=== PATIENT | female | born 1965 | race Caucasian/White ===

== ENCOUNTER 2024-05-23 17:13 | Emergency (ER) | payer BC, SELFPAY ==
--- NOTE | ~2024-05-23 | XR_ITS ---
EXAM: XR elbow RT min 3V DATE: 05/23/2024 19:05 HISTORY: fall . COMPARISON: None available. FINDINGS: Normal mineralization. No fracture or dislocation. No lytic or blastic lesion. Joint space s are maintained. No erosion or periosteal change. Soft tissues within normal limits. IMPRESSION: No acute osseous finding in the right elbow. Reviewed, dictated and finalized at location K.
--- NOTE | ~2024-05-23 | XR_ITS ---
EXAM: XR forearm RT 2V DATE: 05/23/2024 17:38 HISTORY: FALL . COMPARISON: None available. FINDINGS: Normal mineralization. No fracture or dislocation. No lytic or blastic lesion. Joint space s are maintained. No erosion or periosteal change. Soft tissues within normal limits. IMPRESSION: No acute osseous finding in the right forearm. Reviewed, dictated and finalized at location K.
--- NOTE | ~2024-05-23 | XR_ITS ---
EXAM: XR humerus RT DATE: 05/23/2024 17:38 HISTORY: FALL . COMPARISON: None available. FINDINGS: Normal mineralization. No fracture or dislocation. No lytic or blastic lesion. Joint space s are maintained. No erosion or periosteal change. Soft tissues within normal limits. IMPRESSION: No acute osseous finding in the right humerus. Reviewed, dictated and finalized at location K.
--- NOTE | ~2024-05-23 | CT_ITS ---
EXAMINATION: CT cervical spine wo con DATE: 05/23/2024 19:18 INDICATION: fall TECHNIQUE: Computed tomography (CT) of the cervical spine was performed without intravenous contrast. Automated exposure control and iterative reconstruction technique were employed. The dose-length pro duct was 303.70 mGy-cm. COMPARISON: None. FINDINGS: Vertebral Body Alignment: Intact. Reversed lordosis, centered at C5-6. Craniocervical and atlantoaxial alignment: Moderate degenerative change. Alignment intact. Osseous structures/fracture: No evidence of a lytic or blastic process in the visualized spine. No e vidence of acute fracture. Cervical soft tissues: The paraspinal soft tissues planes are maintained. Biapical pleural scarring. Degenerative changes: Multilevel mild facet arthropathy. Multilevel cervical degenerative disc diseas e, moderate at C5-6. Moderate central canal narrowing at that level secondary to a prominent posterio r disc osteophyte complex. No severe neural foraminal narrowing. IMPRESSION: No acute fracture or traumatic malalignment in the cervical spine. Reviewed, dictated and finalized at location K.
[2024-05-23 17:16] VITALS: BP 160/80; PULSE 63; RESP 16; TEMP 36.4; O2SAT 98
--- NOTE | 2024-05-23 17:46 | ED.UPPEXIN ---
HPI - Extremity Injury (Upper) General Chief Complaint: Extremity Injury, Upper Stated Complaint: Fall-injury to right arm Time Seen by Provider: 05/23/24 17:46 Source: patient Mode of arrival: ambulatory Limitations: no limitations History of Present Illness HPI narrative: 68 years old white male came to the ED by private car complaining of a fall,. Patient went down 2 steps of the DAC, now complaining of pain at the right upper extremity. He denies other injuries. Related Data Allergies Allergy/AdvReac Type Severity Reaction Status Date / Time ciprofloxacin (From Cipro) Allergy Severe Redness of Verified 05/23/24 17:22 Skin amoxicillin Allergy Intermediate Hives Verified 05/23/24 17:22 Course Vital Signs Vital signs: Vital Signs Temperature 36.4 C L 05/23/24 17:16 Pulse Rate 63 05/23/24 17:16 Respiratory Rate 16 05/23/24 17:16 Blood Pressure 160/80 H 05/23/24 17:16 Pulse Oximetry 98 05/23/24 17:16 Temperature 36.4 C L 05/23/24 17:16 Pulse Rate 63 05/23/24 17:16 Respiratory Rate 16 05/23/24 17:16 Blood Pressure 160/80 H 05/23/24 17:16 Pulse Oximetry 98 05/23/24 17:16 MDM - Extremity Injury (Upper) Imaging Data My impression: Impressions Humerus X-Ray 05/23/24 18:21 IMPRESSION: No acute osseous finding in the right humerus. Forearm X-Ray 05/23/24 18:22 IMPRESSION: No acute osseous finding in the right forearm. Elbow X-Ray 05/23/24 19:19 IMPRESSION: No acute osseous finding in the right elbow. Radiologist's impression: Impressions Humerus X-Ray 05/23/24 18:21 IMPRESSION: No acute osseous finding in the right humerus. Forearm X-Ray 05/23/24 18:22 IMPRESSION: No acute osseous finding in the right forearm. Discharge Plan Discharge Clinical Impression: Sprain and strain of wrist Patient Disposition: Home Condition: Stable Instructions: How to Use a Sling (ED), Splint Care (ED), Wrist Sprain (ED) Additional Instructions: Discharge instructions Ice pack 20 minutes/hour for the next 24 hours Keep right hand elevated, Get [id number] wrist splint Take Tylenol, ibuprofen as needed Patient Language: Slovak Follow-up/Referrals: Agustin Marion MD [Primary Care Provider] -
--- OUTSIDE RECORDS SUMMARY | 2024-05-23 18:36 | XMS_ITS | Clinical Summary ---
Author Organization [facility] Address [address] [place] [address] Phone Care Team Providers Care Channel Opener Name Role Phone Unavailable Primary Care Provider Unavailabl e Allergies Active Allergy Reactions Criticality Noted Date Comments Amoxicillin-Pot Clavulanate Hives 03/03/19 19 Ciprofloxacin Rash 02/12/2018 Milk (Cow) Shortness of Breath 05/05/2018 Medications pantoprazole (PROTONIX) 40 MG Tablet Delayed ResponseIndications :Gastroesophageal reflux disease Take 1 Tab by mouth daily. 90 Tab 1 0 Active propranolol (INDERAL) 20 MG TabletIndications:H ypertension, unspecified type Take 1 Tab by mouth 2 times daily. 180 Tab 1 0 Active albuterol 108 (90 Base) MCG/ACT Aerosol SolutionIndications :Mild intermittent asthma without complication INHALE 2 PUFFS BY MOUTH EVERY 4 HOURS NEEDED FOR WHEEZE 8.5 Inhaler 1 0 Active traZODone (DESYREL) 100 MG TabletIndications:I nsomnia, unspecified type TAKE 1 TABLET BY MOUTH EVERY DAY AT NIGHT 90 Tablet 1 1 Active simvastatin (ZOCOR) 5 MG TabletIndications:H yperlipidemia, unspecified hyperlipidemia type TAKE 1 TABLET BY MOUTH EVERY DAY 90 Tablet 1 1 Active Active Problems Problem Noted Date Diagnosed Date Hyperlipidemia 12/08/2018 IFG (impaired fasting glucose) 12/08/2018 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/2018 Vitamin D insufficiency 07/09/2018 Depression 06/08/2018 Mild intermittent asthma without complication Hypertension 05/05/2018 RLS (restless legs syndrome) 05/05/2018 Insomnia 05/05/2018 Gastroesophageal reflux disease 05/05/2018 Seasonal allergic rhinitis 05/05/2018 Resolved Problems Problem Noted Date Diagnosed Date Resolved Date ETD (Eustachian tube dysfunction), bilateral 9 12/08/2018 Tympanosclerosis involving t ympanic membrane only, bilateral 07/09/2018 12/08/2018 Aural polyp, left 07/09/2018 12/08/2018 PNAR (perennial non-allergic rhinitis) 07/09/2018 12/08/2018 Hypertrophy of inferior nasal turbinate 07/09/2018 12/08/2018 Nasal obstruction without choanal atresia 07/09/2018 12/08/2018 Persistent hypersomnia 07/09/201812/08 Snoring 07/09/2018 12/08/2018 Chronic otitis media of left ear 07/09/2018 12/08/2018 PLMD (periodic limb movement disorder) 07/09/2018 12/08/2018 Laryngopharyngeal reflux (LPR) 07/09/2018 12/08/2018 Immunizations Immunization Administration Dates Next Due Covid-19, Mrna, Lnp-s, Pf, 30 Mcg/0.3 Ml Dose (P fizer) 05/30/2020,05/07/2020 Influenza Vaccine greater than 3 yrs 11/26/2019 Influenza Vaccine, Quadrivalent, PF 12/01/2018 Influenza, Recombinant, Quadrivalent,injectable, Pf 11/26/2019 Pneumococcal Vaccine Adult - 23 Valent 0 TDAP Vaccine 12/08/2018 Family History Relation Name Status Comments Father Alive Mother Alive Social History Tobacco Use Types Packs/Day Years Used Date Smoking Tobacco: Never Smokeless Tobacco: Never Alcohol Use Standard Drinks/Week Comments Yes 0 (1 standard drink = 0.6 oz pur e alcohol) PHQ-2 Answer Date Recorded Total Score - Questions 1-9 0 12/11 Comments No Sex and Gender Information Value Date Recorded Sex Assigned at Not on file Legal Sex Female 2:54 PM ELECTRIC METER TESTER SHOP Gender Identity Not on file Sexual Orientation Not on file Last Filed Vital Signs Vital Sign Reading Time Taken Comments Blood Pressure 132/78 12/27/2019 12:57 PM ELECTRIC METER TESTER SHOP Pulse 56 12/27/2019 12:57 PM ELECTRIC METER TESTER SHOP Temperature 36.8 C (98.2 F) 12/27/2019 12:57 PM ELECTRIC METER TESTER SHOP Respiratory Rate 16 12/27/2019 12:57 PM ELECTRIC METER TESTER SHOP Oxygen Saturation 98% 12/27/2019 12:57 PM ELECTRIC METER TESTER SHOP Inhaled Oxygen Concentration - - Weight 80.1 kg (176 lb 9.6 oz) 12/27/2019 12:57 PM ELECTRIC METER TESTER SHOP Height 162.6 cm (5' 4 ) 12/27/2019 12:57 PM ELECTRIC METER TESTER SHOP Body Mass Index 30.31 12/27/2019 12:57 PM ELECTRIC METER TESTER SHOP Plan of Treatment Health Maintenance Due Date Last Done Comments Hepatitis C Virus (HCV) Screening 1965 Hepatitis B Immunization (1 of 3 - 19+ 3-dose series) 08/12/1983 HPV/Cotest 1994 Cologuard 2014 Immunochemical Fecal Occult Blood 2014 Zoster Immunization (1 of 2) 2014 Mammogram 06/10/2020 06/10/2018, 03/01/2016 Pneumococcal Immunization (5 0+ years) (2 of 2 - PCV) 12/26/2020 12/27/2019 Cervical Cancer Screening (CCS) 07/16/2021 Pap Smear 07/16/2021 07/16/2018, 06/10/2018 Influenza Immunization (#1) 10/12/202311/10, 11/26/2019, 12/01/2018 SARS-COV-2 Immunization ( season) 2023 05/30/2020, 05/07/2020 Colonoscopy 08/17/2025 08/18/2015 Colorectal Cancer Screening 08/17/2025 Td Immunization Every 10 Yea rs (Adults With 1 Tdap) 12/08/2028 12/08/2018 Respiratory Syncytial Virus (RSV) Immunization (Adult) (1 - 1-dose 75+ series) 08/12/2039 08/18/2015 DTaP/Tdap/Td Immunization Discontinued 12/08/2018 Pneumococcal Immunization Combined Discontinued 12/27/2019 Meningococcal Immunization (ACWY) Aged Out No longer eligible based on patient's age to complete this topic Rotavirus Immunization Aged Out No lo nger eligible based on patient's age to complete this topic Procedures Procedure Name Priority Date/Time Associated Diagnosis Comments PATHOLOGY CYTOLOGY QUALITY CONTROL ASSISTANT Routine 07/16/2018 CE SCREENING BILATERAL DIGITAL W CAD W DELANEY Routine 06/10/2018 4:13 PM CDT Screening for malignant neoplasm of breast HM COLONOSCOPY Routine 08/18/2015 from Last 3 Months or Most Recently Relevant to Health Maintenance Results * PATHOLOGY CYTOLOGY QUALITY CONTROL ASSISTANT (07/16/2018) Specimen of unknown material (specimen) Sidra Meraz Brendon COIL BINDER, DOT NET ARCHITECT PATHOLOGY/CYTOLOGY ORDER LORI Final Result * CE SCREENING BILATERAL DIGITAL W CAD W DELANEY (06/10/2018 4:13 PM CDT) Anatomical Region Laterality Modality breast Bilateral Mammography 06/10/2018 5:50 PM CDT Narrative 06/23/2018 8:25 AM CDT - CE SCREENING BILATERAL DIGITAL W CAD W DELANEY BILATERAL DIGITAL SCREENING MAMMOGRAM 3D/2D WITH CAD WITH MEDIOLATERAL OBLIQUE CRANIOCAUDAL: 06/10/2018 The study was acquired using digital technology and interpreted from soft copy. Current study was also evaluated with ViaWestD version 7.2. CLINICAL: Routine screening. Patient has no complaints. No personal history of cancer. No family history of breast cancer. COMPARISONS: Comparison is made to exams dated: 03/01/2016 and 12/24/2013 [facility]. BREAST TISSUE:The tissue of both breasts is predominantly fatty. FINDINGS: No significant masses, calcifications, or other findings are seen in either breast. There has been no significant interval change. IMPRESSION: BI-RAD 1 NEGATIVE There is no mammographic evidence of malignancy. A 1 year screening mammogram is recommended. The patient has been or will be contacted. The patient will be entered into a reminder system with a target due date of 1 year for her next screening exam. Electronically signed by: Lisbeth hernandez/mildred:06/22/2018 17:06:41 Pyrometer Temperature Regulator: Maryellen Zamora (R), [facility] letter sent: Normal Exam Reading location: [facility] BI-RADS: 1 Negative Procedure Note Lisbeth Weiss MD - 06/23/2018 - CE SCREENING BILATERAL DIGITAL W CAD W DELANEY BILATERAL DIGITAL SCREENING MAMMOGRAM 3D/2D WITH CAD WITH MEDIOLATERAL OBLIQUE CRANIOCAUDAL: 06/10/2018 The study was acquired using digital technology and interpreted from soft copy. Current study was also evaluated with ICAD version 7.2. CLINICAL: Routine screening. Patient has no complaints. No personal history of cancer. No family history of breast cancer. COMPARISONS: Comparison is made to exams dated: 03/01/2016 and 12/24/2013 [facility]. BREAST TISSUE:The tissue of both breasts is predominantly fatty. FINDINGS: No significant masses, calcifications, or other findings are seen in either breast. There has been no significant interval change. IMPRESSION: BI-RAD 1 NEGATIVE There is no mammographic evidence of malignancy. A 1 year screening mammogram is recommended. The patient has been or will be contacted. The patient will be entered into a reminder system with a target due date of 1 year for her next screening exam. Electronically signed by: Lisbeth hernandez/mildred:06/22/2018 17:06:41 Pyrometer Temperature Regulator: Maryellen Zamora (R), [facility] letter sent: Normal Exam Reading location: [facility] BI-RADS: 1 Negative us Piedad Khan MD IMG MAMMO ORDERABLES Final R esult * HM COLONOSCOPY (08/18/2015) us Not On File Provider PROCEDURE/MINOR SURGICAL OR DERABLES Final Result from Last 3 Months or Most Recently Relevant to Health Maintenance Insurance [facility]
--- OUTSIDE RECORDS SUMMARY | 2024-05-23 18:36 | XMS_ITS | Encounter Summary ---
Author Organization [facility] Address [address] [place] [address] Phone Care Team Providers Care Shop Blacksmith Name Role Phone Piedad Khan MD Primary Care Provider Reason for Visit * Reason Comments Medication Refill Encounter Details Date Type Department Care Team (Late st Contact Info) Description 05/22/2020 Refill [facility] - Primary Care - [place] [address] [place] [phone] Piedad Khan MD [address] [place] [address] Medication Refill Social History Tobacco Use Types Packs/Day Years Used Date Smoking Tobacco: Never Smokeless Tobacco: Never Alcohol Use Standard Drinks/Week Comments Yes 0 (1 standard drink = 0.6 oz pur e alcohol) PHQ-2 Answer Date Recorded Total Score - Questions 1-9 0 12/11 Comments No Sex and Gender Information Value Date Recorded Sex Assigned at Not on file Legal Sex Female 2:54 PM SHOP TAILOR APPRENTICE Gender Identity Not on file Sexual Orientation Not on file documented as of this encounter Miscellaneous Notes * Telephone Encounter - Lyubov Lagunas RN - 05/22/2020 10:02 AM CDT Medication failed the protocol, provider to review and approve the medication order if appropriate. Requested Prescriptions Pending Prescriptions Disp Refills traZODone (DESYREL) 100 MG Tablet [Pharmacy Med Name: TRAZODONE 100 MG TABLET] 90 Tablet 1 Sig: TAKE 1 TABLET BY MOUTH EVERY DAY AT NIGHT Not Delegated - Psychiatry: Antidepressants - Serotonin Reuptake Inhibitor/Antagonist Failed - 05/22/2020 12:00 AM Failed - This refill cannot be delegated Passed - Valid encounter within last 12 months Past Office Visits Recent Outpatient Visits 4 months ago Physical exam, annual (Adult) [facility] Piedad Khan MD 5 months ago Gastroesophageal reflux disease [facility] Piedad Khan MD 1 year ago Physical exam, annual (Adult) [facility] Piedad Khan MD 1 year ago [facility], [facility] Hypertension, unspecified type [facility] Piedad Khan MD Upcoming Appointments Future Appointments In 7 months [facility] In 7 months Piedad Khan MD [facility] ROLL WINDER - Recent and Past Visits Recent Visits Date Type Provider Dept 12/27/19 Office Visit Piedad Khan MD [facility] 11/25/19 Telemedicine Piedad Khan MD [facility] Showing recent visits within past 460 days with a meds authorizing provider and meeting all other requirements Future Appointments No visits were found meeting these conditions. Showing future appointments within next 90 days with a meds authorizing provider and meeting all other requirements documented in this encounter Plan of Treatment Not on file documented as of this encounter Visit Diagnoses Diagnosis Insomnia, unspecified type documented in this encounter Additional Health Concerns Assessment Noted Time PHQ-9 Depression Total Score: 0 12/27/19 20 1:00 PM SHOP TAILOR APPRENTICE documented as of this encounter Care Teams Shop Blacksmith Relationship Specialty Start Date End Date Piedad Khan MD [address] [place] [address] PCP - General Family Medicine 03/03/18 04/29/23 documented as of this encounter
--- OUTSIDE RECORDS SUMMARY | 2024-05-23 18:36 | XMS_ITS | Encounter Summary ---
Author Organization [facility] Address [address] [place] [address] Phone Care Team Providers Care Air Turning Machine Feeder Name Role Phone Piedad Khan MD Primary Care Provider Reason for Visit * Reason Comments Medication Refill Encounter Details Date Type Department Care Team (Late st Contact Info) Description 01/26/2020 Refill [facility] - Primary Care - [place] [address] [place] [phone] Piedad Khan MD [address] [place] [address] Medication Refill Social History Tobacco Use Types [...] on file Legal Sex Female 2:54 PM MORTAR MAKER Gender Identity Not on file Sexual Orientation Not on file COVID-19 Exposure Response Date Recorded In the last month, have you been in contact with someone who was confirmed or suspected to have Coronavirus / COVID-19? No / Unsure 12/27/2019 12:55 PM MORTAR MAKER documented as of this encounter Miscellaneous Notes * Telephone Encounter - Kathryn Le, ELSIE - 01/26/2020 11:37 AM MORTAR MAKER Medication failed the protocol, provider to review and approve the medication order if appropriate. Requested Prescriptions Pending Prescriptions Disp Refills albuterol 108 (90 Base) MCG/ACT Aerosol Solution [Pharmacy Med Name: ALBUTEROL HFA (PROAIR) INHALER] 8.5 Inhaler 1 Sig: INHALE 2 PUFFS BY MOUTH EVERY 4 HOURS NEEDED FOR WHEEZE Pulmonology: Beta Agonists - Albuterol & Levalbuterol Failed - 01/26/2020 12:00 AM Failed - May refill 2 inhalers, 0 refills one time since last office visit. May refill #50 nebulizer vials, 0 refills for albuterol or #48 vials, 0 refills for Xopenex one time since last office visit. Passed - Valid encounter within last 6 months Past Office Visits Recent Outpatient Visits 1 month ago Physical exam, annual (Adult) [facility] Piedad Khan MD 2 months ago Gastroesophageal reflux disease [facility] Piedad Khan MD 1 year ago Physical exam, annual (Adult) [facility] Piedad Khan MD 1 year ago Insomnia, unspecified type [facility] Piedad Khan MD 1 year ago Hypertension, unspecified type [facility] Piedad Khan MD Upcoming Appointments Future Appointments In 11 months [facility] In 11 months Piedad Khan MD [facility] ORGAN TUNER - Recent and Past Visits Recent Visits Date Type Provider Dept 12/27/19 Office Visit Piedad Khan MD [facility] 11/25/19 Telemedicine Piedad Khan MD [facility] 12/08/18 Office Visit Piedad Khan MD [facility] Showing recent visits within past 460 days with a meds authorizing provider and meeting all other requirements Future Appointments No visits were found meeting these conditions. Showing future appointments within next 90 days with a meds authorizing provider and meeting all other requirements Passed - Last BP in normal range BP Readings from Last 1 Encounters: 12/27/19 132/78 AR MAKER documented in this encounter Plan of Treatment Not on file documented as of this encounter Visit Diagnoses Diagnosis Mild intermittent asthma without complication Unspecified asthma documented in this encounter Additional Health Concerns Assessment Noted Time PHQ-9 Depression Total Score: 0 12/27/19 20 1:00 PM MORTAR MAKER documented as of this encounter Care Teams Air Turning Machine Feeder Relationship Specialty Start Date End Date Piedad Khan MD [address] [place] [address] PCP - General Family Medicine 03/03/18 04/29/23 documented as of this encounter
[2024-05-23] MEDS: HYDROcodone/acetaminophen (*CRX) 5-325 MG TABLET 1 TAB PO (19:06)
== END 2024-05-23 20:15 | disposition home or self-care (01) ==
PROVIDERS: Emergency Provider Emergency Medicine; PCP Family Medicine
DX: S63.501A Unspecified sprain of right wrist, initial encounter (principal); S66.911A Strain of unspecified muscle, fascia and tendon at wrist and hand level, right hand, initial encounter; W10.8XXA Fall (on) (from) other stairs and steps, initial encounter
CPT/HCPCS: 72125; 73060; 73080; 73090; 99284; A9270